=== PATIENT | male | born 1990 | race Caucasian/White ===

== ENCOUNTER 2021-02-18 15:34 | Emergency (ER) | payer SELFPAY ==
[2021-02-18 15:48] VITALS: BP 117/62; PULSE 71; RESP 16; TEMP 37.4; O2SAT 100
--- NOTE | 2021-02-18 15:49 | ED.SKABFB ---
HPI - Skin/Abscess/Foreign Bdy General Chief complaint: Skin/Abscess/Foreign Body Stated complaint: Skin Problem Time Seen by Provider: 02/18/21 15:40 Source: patient and RN notes reviewed History of Present Illness HPI narrative: Patient is a 31-year-old male who presents the urgent care with complaints of a rash to the right lower arm and right upper leg for the last 5 weeks. Patient states that he has been picking on the lesions and causing open sores. Patient has used hydrocortisone, Neosporin and Polysporin cream to the areas without much improvements. Patient states that the area to the right upper thigh is the newest lesion. Denies of any new detergents, lotions, creams. No other acute complaints. No acute distress noted. Patient aware of the plan of care. Some parts of this dictation were generated by voice recognition software and may contain typographical and/or grammatical inaccuracies. Related Data Allergies Allergy/AdvReac Type Severity Reaction Status Date / Time No Known Allergies Allergy Verified 02/18/21 15:50 Review of Systems Review of Systems: CONSTITUTIONAL: Denies fever, chills, or sweats. EYES: Denies visual changes, redness, or discharge. ENT: Denies rhinorrhea, congestion, sore throat, or otalgia. CARDIOVASCULAR: Denies chest pain, palpitations, or edema. RESPIRATORY: Denies cough or dyspnea. GASTROINTESTINAL: Denies abdominal pain, nausea, vomiting, or diarrhea. GENITOURINARY: Denies dysuria or hematuria. SKIN: Reports of an itchy rash to the right lower arm and right upper leg MUSCULOSKELETAL: Denies back pain, joint pain, or myalgia. NEUROLOGIC: Denies headache, numbness, or weakness. All other systems reviewed are negative, except as documented in HPI. PMFSH Comments At the time of my signature, I reviewed and agree with the nursing past medical, surgical, social, and family history. There is no relevant family history pertinent to the patient complaint. Exam Narrative: GENERAL: This is a well-nourished, well-developed patient, in no apparent distress. HEAD: normocephalic, atraumatic. EYES: PERRL. Sclera clear/white. Vision is grossly intact. EARS: External ears normal NOSE: External nose normal with no obvious nasal discharge, nares without redness, no rhinorrhea. THROAT: Mucous membranes moist CARDIOVASCULAR: Regular rate and rhythm without murmurs, gallops, or rubs. RESPIRATORY: Clear to auscultation. Breath sounds equal bilaterally. No wheezes, rales, or rhonchi. SKIN: Scattered open lesions to the lower right arm; 3 x 3 erythemic with plaque-like center to a dermatitis lesion of the right medial thigh NEURO: awake, alert, and oriented to person, place and time. There were no obvious focal neurologic abnormalities. EXTREMITIES: No clubbing, cyanosis, or edema. Course Vital Signs Vital signs: Vital Signs Temperature 99.4 F 02/18/21 15:48 Pulse Rate 71 02/18/21 15:48 Respiratory Rate 16 02/18/21 15:48 Blood Pressure 117/62 02/18/21 15:48 Pulse Oximetry 100 02/18/21 15:48 Temperature 99.4 F 02/18/21 15:48 Pulse Rate 71 02/18/21 15:48 Respiratory Rate 16 02/18/21 15:48 Blood Pressure 117/62 02/18/21 15:48 Pulse Oximetry 100 02/18/21 15:48 Reviewed MDM - Skin/Abscess/Foreign Bdy MDM Narrative Medical decision making narrative: Advised the patient to use prescription cream to the affected areas as directed. May also use Lotrimin to the affected areas intermittently throughout the day as needed. Do not use to the face. Complete the steroid regimen as prescribed. Be sure to eat and drink with the medication. Follow rules on your discharge paperwork referring to tinea. If you develop any increase in the spread of the rash?follow-up with your PCP for reevaluation and possible referral to a information security risk analyst. Follow-up with your PCP within 2 to 5 days or for worsening symptoms or failure to improve. Differential Diagnosis Differential diagnosis: Likely abs
== END 2021-02-18 16:07 | disposition home or self-care (01) ==
PROVIDERS: Emergency Provider Nurse Practitioner Family
DX: L30.9 Dermatitis, unspecified (principal)
CPT/HCPCS: 99213; G0463